=== PATIENT | female | born 1990 | race Caucasian/White ===

== ENCOUNTER → 2020-04-10 11:45 | Observation (INO) ==
[2020-04-10 10:01] LABS: Bilirubin,Urine Negative (Negative); Blood,Urine Negative (Negative); Clarity,Urine Clear (Clear); Color,Urine Yellow (Yellow); Glucose,Urine (UA) Normal (Normal); Ketones,Urine Negative (Negative); Leukocyte Esterase,Urine Negative (Negative); Nitrite,Urine Negative (Negative); PH,Urine 6.5 pH Units (5.0-8.0); Protein,Urine Negative (Neg-Trace); Specific Gravity,Urine 1.007 (1.010-1.025); Urobilinogen,Urine Normal (Normal)
[2020-04-10 10:43] LABS: Candida DNA Not Detected (Not Detect); Gardnerella DNA Not Detected (Not Detect); Trichomonas DNA Not Detected (Not Detect)
== END | disposition home or self-care (01) ==
LOC: 1NENULAB
PROVIDERS: ADMIT Obstetrics & Gynecology; ATTEND Obstetrics & Gynecology

== ENCOUNTER → 2020-07-18 14:50 | Observation (INO) ==
[2020-07-18 14:30] LABS: Bacteria,Urine Few per hpf (None-Few); Bilirubin,Urine Negative (Negative); Blood,Urine Negative (Negative); Clarity,Urine Clear (Clear); Color,Urine Colorless (Yellow); Glucose,Urine (UA) Normal (Normal); Ketones,Urine Negative (Negative); Leukocyte Esterase,Urine Moderate (Negative); Nitrite,Urine Negative (Negative); Protein,Urine Negative (Neg-Trace); RBC,Urine 0-3 per hpf (0-3); Specific Gravity,Urine 1.007 (1.010-1.025); Squamous Epithelial Cell,Urine Few per hpf (None-Few); Urobilinogen,Urine Normal (Normal)
== END | disposition home or self-care (01) ==
LOC: 1NENULAB
PROVIDERS: ADMIT Obstetrics & Gynecology; ATTEND Obstetrics & Gynecology

== ENCOUNTER → 2020-07-24 10:19 | Observation (INO) ==
[~2020-07-24 10:19] MED LIST: EPHEDrine 50 MG/ML VIAL IVP PRN; Epidural Premix (fent/bupiv) 110 ML EP SCH
== END | disposition home or self-care (01) ==
LOC: 1NENULAB
PROVIDERS: ADMIT Obstetrics & Gynecology; ATTEND Obstetrics & Gynecology

== ENCOUNTER 2020-07-25 22:53 | Inpatient (IN) ==
[~2020-07-25 22:53] MED LIST changes: +*HR* FentaNYL (PF) 100 MCG/2 ML VIAL IVP PRN; +Azithromycin 500 MG in 0.9 % Sodium Chloride 250 ML IVPB ONE; -EPHEDrine 50 MG/ML VIAL IVP PRN; -Epidural Premix (fent/bupiv) 110 ML EP SCH; +Famotidine 20 MG/2 ML VIAL IVP PRN; +Lidocaine 1% 20 ML MDV INFILT PRN; +Metoclopramide 10 MG/2 ML VIAL IVP PRN; +Naloxone 0.4 MG/ML INJ IVP PRN; +Ondansetron 4 MG/2 ML VIAL IVP PRN; +Ringers Solution, Lactated 1,000 ML ONE
[2020-07-25] MEDS ORDERED: Ringers Solution, Lactated 1,000 ML IVC SCH (23:00)
[2020-07-25 23:06] LABS: Basophils % 0.3 %; Eosinophils # 0.1 K/mcL (0.0-0.6); Hematocrit 40.9 % (35.3-44.9); Hemoglobin 13.6 g/dL (11.5-15.4); Immature Granulocytes % 0.4 % (0-4); Lymphocytes # 3.1 K/mcL (0.6-4.6); Lymphocytes % 25.4 %; Mean Corpuscular HGB Conc 33.3 g/dL (31.6-35.5); Mean Corpuscular Hemoglobin 28.3 pg (28.0-33.3); Mean Corpuscular Volume 85.2 fL (83.0-100.0); Mean Platelet Volume 9.2 fL (9.4-12.4); Monocytes # 0.9 K/mcL (0.0-1.3); Monocytes % 7.2 %; Platelet Count 296 K/mcL (140-400); Red Cell Distribution Width 12.8 % (11.5-14.5); Segmented Neutrophils % 65.7 %; White Blood Count 12.1 K/mcL (4.3-11.1)
[2020-07-25] MEDS ORDERED: Gentamicin 120 MG in 0.9 % Sodium Chloride 100 ML IVPB ONE (23:06)
[2020-07-25] MEDS ORDERED: *HR* Propofol 200 MG/20 ML VIAL IVP ONE (23:15)
[2020-07-25] MEDS ORDERED: *HR* FentaNYL (PF) 100 MCG/2 ML VIAL ONE (23:15)
[2020-07-25] MEDS ORDERED: Dexamethasone 4 MG/ML VIAL ONE (23:16)
[2020-07-25] MEDS ORDERED: Lidocaine -MPF 2% 5 ML VIAL ONE (23:16)
[2020-07-25] MEDS ORDERED: *HR* Succinylcholine 200 MG/10 ML VIAL IVP ONE (23:16)
[2020-07-25] MEDS ORDERED: Ondansetron 4 MG/2 ML VIAL ONE (23:16)
[2020-07-25] MEDS ORDERED: *HR* Oxytocin 10 UNIT/ML VIAL IM ONE ×2 (23:23→23:39)
[2020-07-25] MEDS ORDERED: EPHEDrine 50 MG/ML VIAL ONE (23:40)
[2020-07-25] MEDS ORDERED: *HR* HYDROMORPHONE 2 MG/ML VIAL ONE (23:45)
[2020-07-25] MEDS ORDERED: Ondansetron 4 MG/2 ML VIAL IVP PRN (23:50)
[2020-07-25] MEDS ORDERED: *HR* HYDROmorphone PF 0.5 MG/0.5 ML SYRINGE IVP PRN (23:50)
[2020-07-25] MEDS ORDERED: Acetaminophen IV 1,000 MG/100 ML INFUS..BTL IVPB ONE (23:50)
[2020-07-26] MEDS ORDERED: Sennosides 8.6 MG TABLET PO PRN (02:30)
[2020-07-26] MEDS ORDERED: Ondansetron 4 MG/2 ML VIAL IVP PRN (02:30)
[2020-07-26] MEDS ORDERED: *HR* HYDROmorphone 20 MG/20 ML PCA IVC PRN (02:30)
[2020-07-26] MEDS ORDERED: Metoclopramide 10 MG/2 ML VIAL IVP PRN (02:30)
[2020-07-26] MEDS ORDERED: Ringers Solution, Lactated 1,000 ML IVC SCH (02:30)
[2020-07-26] MEDS ORDERED: Naloxone 0.4 MG/ML INJ IVP PRN (02:30)
[2020-07-26] MEDS ORDERED: Simethicone 80 MG TAB.CHEW PO PRN (02:30)
[2020-07-26] MEDS ORDERED: Oxytocin 20 units/ LR 1000 mL 20 UNIT/1,000 ML BAG IVC SCH (02:30)
[2020-07-26 04:00] LABS: Basophils % 0.2 %; Eosinophils % 0.1 %; Hematocrit 35.3 % (35.3-44.9); Immature Granulocytes % 0.3 % (0-4); Lymphocytes # 1.2 K/mcL (0.6-4.6); Lymphocytes % 6.6 %; Mean Corpuscular HGB Conc 33.1 g/dL (31.6-35.5); Mean Corpuscular Hemoglobin 28.7 pg (28.0-33.3); Mean Corpuscular Volume 86.7 fL (83.0-100.0); Mean Platelet Volume 9.3 fL (9.4-12.4); Monocytes # 0.5 K/mcL (0.0-1.3); Monocytes % 2.9 %; Neutrophils # 16.1 K/mcL (1.6-8.9); Platelet Count 251 K/mcL (140-400); Red Blood Count 4.07 M/mcL (3.82-4.97); Red Cell Distribution Width 12.7 % (11.5-14.5); Segmented Neutrophils % 89.9 %; White Blood Count 17.9 K/mcL (4.3-11.1)
[2020-07-26 04:03] LABS: Hemoglobin 11.7 g/dL (11.5-15.4)
[2020-07-26 04:22] LABS: BUN/Creatinine Ratio 13 (6-26); Blood Urea Nitrogen 8 mg/dL (6-20); Calcium 8.5 mg/dL (8.6-10.3); Carbon Dioxide 19 mEq/L (23-29); Chloride 105 mEq/L (98-107); Glucose 96 mg/dL (70-105); Osmolality,Calculated 278 (280-300); Potassium 3.8 mEq/L (3.5-5.1); Sodium 135 mEq/L (136-145); eGFR For African Americans > 60 (> 60); eGFR For Non-African Americans > 60 (> 60)
[2020-07-26] MEDS ORDERED: Gentamicin 90 MG in 0.9 % Sodium Chloride 100 ML IVPB SCH (08:00)
[2020-07-26] MEDS: Prenatal Vit/FA 1 EACH TABLET PO SCH (08:07)
[2020-07-26] MEDS: metroNIDAZOLE 500 MG TABLET PO SCH ×3 (08:07→21:12)
[2020-07-26] MEDS: *HR* OxyCODONE/APAP 5/325 TABLET PO PRN ×4 (08:51→23:49)
[2020-07-26] MEDS: Ibuprofen 600 MG TABLET PO PRN ×2 (11:16→17:25)
[2020-07-26] MEDS: Gentamicin 110 MG in 0.9 % Sodium Chloride 100 ML IVPB SCH ×2 (16:07→23:36)
[2020-07-27] MEDS: Ibuprofen 600 MG TABLET PO PRN (02:20)
[2020-07-27] MEDS: *HR* OxyCODONE/APAP 5/325 TABLET PO PRN (06:53)
[2020-07-27] MEDS: Prenatal Vit/FA 1 EACH TABLET PO SCH (07:57)
[2020-07-27] MEDS: metroNIDAZOLE 500 MG TABLET PO SCH (07:57)
[2020-07-27 08:00] VITALS: BP 105/70
== END 2020-07-27 10:32 | disposition home or self-care (01) | DRG 788 ==
LOC: 1NENULAB → 1NENUOBS 07-26 02:18
PROVIDERS: ADMIT Obstetrics & Gynecology; ATTEND Obstetrics & Gynecology